=== PATIENT | male | born 1990 | race Caucasian/White ===

== ENCOUNTER 2023-05-24 13:50 | Emergency (ER) | payer MEDICAID, OTHER ==
[~2023-05-24] VITALS: Ht 182.9 cm; Wt 93.6 kg
[2023-05-24 13:51] VITALS: BP 146/88; TEMP 99.3; O2SAT 97
[2023-05-24] MEDS ORDERED: IBUPROFEN 800 MG TAB PO ONE (15:50)
[2023-05-24] MEDS ORDERED: IBUP80TA PO (15:53)
[2023-05-24] MEDS ORDERED: ACET-897 PO (15:53)
== END 2023-05-24 16:11 | disposition home or self-care (01) ==
LOC: M ED 13:50
DX: S62.346A Nondisplaced fracture of base of fifth metacarpal bone, right hand, initial encounter for closed fracture (principal); W23.2XXA Caught, crushed, jammed or pinched between a moving and stationary object, initial encounter; Y92.009 Unspecified place in unspecified non-institutional (private) residence as the place of occurrence of the external cause; Y93.89 Activity, other specified; Y99.8 Other external cause status

== ENCOUNTER → 2023-05-25 | Outpatient (CLI) | payer OTHER ==
[~2023-05-25] MED LIST: ACET-897 PO; IBUP80TA PO
== END ==
LOC: M SOG 14:53
PROVIDERS: ATTEND Orthopaedic Surgery Hand Surgery
DX: M79.641 Pain in right hand (principal)

== ENCOUNTER → 2023-06-18 | Outpatient (CLI) | payer OTHER | LOC: M SOG 15:47 | PROVIDERS: ATTEND Physician Assistant | DX: S62.336D Displaced fracture of neck of fifth metacarpal bone, right hand, subsequent encounter for fracture with routine healing (principal) ==